=== PATIENT | male | born 1965 | race Caucasian/White ===

== ENCOUNTER 2023-04-09 16:22 | Inpatient (IN) | payer BC, MEDICAID ==
[~2023-04-09] VITALS: Ht 172.7 cm; Wt 81.8 kg
[2023-04-09 17:22] LABS: BASOPHILS # (AUTO) 0.1 X10'3 (0-0.2); BASOPHILS % (AUTO) 0.9 % (0-1); EOSINOPHILS # (AUTO) 0.3 X10'3 (0-0.9); HEMATOCRIT 40.1 % (42.0-52.0); HEMOGLOBIN 13.9 g/dl (14.0-17.9); LYMPHOCYTES # (AUTO) 2.8 X10'3 (1.1-4.8); LYMPHOCYTES % (AUTO) 41.2 % (21-51); MEAN CORPUSCULAR HEMOGLOBIN 31.9 PG (27.0-31.0); MEAN CORPUSCULAR HGB CONC 34.7 g/dL (33.0-36.5); MEAN PLATELET VOLUME 7.1 FL (7.4-10.4); MONOCYTES # (AUTO) 0.4 X10'3 (0-0.9); MONOCYTES % (AUTO) 5.9 % (2-12); NEUTROPHILS # (AUTO) 3.2 X10'3 (1.8-7.7); PLATELET COUNT 238 X10'3 (140-440); RED BLOOD COUNT 4.36 X10'6 (4.70-6.10); RED CELL DISTRIBUTION WIDTH 13.1 % (11.5-14.5); WHITE BLOOD COUNT 6.8 X10'3 (4.5-11.0)
[2023-04-09 17:28] LABS: ALANINE AMINOTRANSFERASE 27 U/L (12-78); ALBUMIN 3.7 G/DL (3.4-5.0); ALBUMIN/GLOBULIN RATIO 1.4 (1.1-1.5); ALKALINE PHOSPHATASE 98 IU/L (46-116); ANION GAP 6 (8-16); ASPARTATE AMINO TRANSFERASE 23 U/L (10-37); BILIRUBIN,TOTAL 0.1 MG/DL (0.1-1.0); BLOOD UREA NITROGEN 17 MG/DL (7-18); BUN/CREATININE RATIO 16.8 (10.0-20.0); CALCIUM 8.7 MG/DL (8.5-10.1); CHLORIDE 107 MMOL/L (99-107); CREATININE 1.01 MG/DL (0.60-1.10); GLUCOSE 178 MG/DL (70-104); POTASSIUM 3.7 MMOL/L (3.5-5.1); SODIUM 140 MMOL/L (135-145); TOTAL CARBON DIOXIDE 27.1 MMOL/L (24-32); TOTAL PROTEIN 6.4 G/DL (6.4-8.2); eGFR 76 ML/MIN
[2023-04-09] MEDS ORDERED: aspirin 325mg tablet PO ONE (17:40)
[2023-04-09] MEDS ORDERED: GABA-530 PO (18:36)
[2023-04-09] MEDS ORDERED: CELE-85 PO (18:38)
[2023-04-09] MEDS ORDERED: ESCI-8 PO (18:39)
[2023-04-09] MEDS ORDERED: BUSP10TA3 PO (18:40)
[2023-04-09] MEDS ORDERED: BUPR1FIL20 SL (18:40)
[2023-04-09] MEDS ORDERED: nicotine 21mg patch - 24 hr TD ONE (18:45)
[2023-04-09] MEDS ORDERED: thiamine 100mg tablet PO ONE (19:15)
[2023-04-09] MEDS ORDERED: magnesium hydroxide 30ml (MOM) UD suspension PO PRN (19:45)
[2023-04-09] MEDS ORDERED: potassium Cl 40MEQ/1/2NS 520ml 520 ML IV PRN (19:45)
[2023-04-09] MEDS ORDERED: magnesium Cl slow-release 64mg tablet PO PRN (19:45)
[2023-04-09] MEDS ORDERED: PERFLUTREN PROTEIN-A MICROSPHR (Optison) 0.22 MG/ML 3ML VIAL IV ONE (19:45)
[2023-04-09] MEDS ORDERED: magnesium 4gm in 100ml NS 100 ML IV PRN (19:45)
[2023-04-09] MEDS ORDERED: ondansetron/PF 4mg/2ml inj IV PRN (19:45)
[2023-04-09] MEDS ORDERED: potassium Cl 20 mEq SR tablet PO PRN ×2 (19:45)
[2023-04-09] MEDS ORDERED: magnesium 2GM in 50ml NS 50 ML IV PRN (19:45)
[2023-04-09] MEDS ORDERED: acetaminophen 325mg tablet PO PRN (19:45)
[2023-04-09] MEDS ORDERED: mag hydrox/Alum hydrox/simeth 30ml oral suspension PO PRN (19:45)
[2023-04-09] MEDS: K and/or MAG REPLACEMENT MC SCH (20:00)
[2023-04-09] MEDS: docusate sod 100mg capsule PO SCH (20:00)
[2023-04-09 20:06] LABS: CHOL/HDL RATIO 3.9 (0.00-4.99); CHOLESTEROL 160 MG/DL (0-200); HDL CHOLESTEROL 41 MG/DL (35-60); LDL CHOLESTEROL 77 MG/DL (50-100); TRIGLYCERIDES 290 MG/DL (20-135)
[2023-04-09 20:09] LABS: HEMOGLOBIN A1C 5.6 % (4.5-6.2)
--- NOTE | 2023-04-09 20:53 | NUR ---
PT ARRIVED TO ROOM 4022A. ABULATED TO BED FROM . ORIENTED TO THE ROOM. RECEIVED REPORT FROM AMERICA TERRY PRIOR TO PT'S ARRIVAL.
[2023-04-09] MEDS: gabapentin 100mg capsule PO SCH (21:03)
[2023-04-09] MEDS: heparin, porcine 5000 units/ml vial SQ SCH (21:04)
[2023-04-09 22:00] VITALS: BP 123/81
[2023-04-10] VITALS (7 sets, daily range): BP systolic 85–107; BP diastolic 39–83
[2023-04-10] MEDS: busPIRone 5mg tablet PO PRN ×2 (04:02→23:32)
--- NOTE | 2023-04-10 05:06 | NUR ---
pt has been having a 2 sec pauses. had about 10x since came up on this floor. dr. Sapp notified.
[2023-04-10 06:04] LABS: BASOPHILS # (AUTO) 0.1 X10'3 (0-0.2); BASOPHILS % (AUTO) 1.1 % (0-1); EOSINOPHILS # (AUTO) 0.2 X10'3 (0-0.9); EOSINOPHILS % (AUTO) 4.2 % (0-6); HEMATOCRIT 40.8 % (42.0-52.0); HEMOGLOBIN 13.8 g/dl (14.0-17.9); LYMPHOCYTES # (AUTO) 1.8 X10'3 (1.1-4.8); LYMPHOCYTES % (AUTO) 37.5 % (21-51); MEAN CORPUSCULAR HEMOGLOBIN 31.6 PG (27.0-31.0); MEAN CORPUSCULAR HGB CONC 33.8 g/dL (33.0-36.5); MEAN CORPUSCULAR VOLUME 93.4 FL (78-98); MEAN PLATELET VOLUME 7.7 FL (7.4-10.4); MONOCYTES # (AUTO) 0.4 X10'3 (0-0.9); MONOCYTES % (AUTO) 7.5 % (2-12); NEUTROPHILS # (AUTO) 2.3 X10'3 (1.8-7.7); NEUTROPHILS % (AUTO) 49.7 % (42-75); PLATELET COUNT 223 X10'3 (140-440); RED BLOOD COUNT 4.37 X10'6 (4.70-6.10); RED CELL DISTRIBUTION WIDTH 12.8 % (11.5-14.5); WHITE BLOOD COUNT 4.7 X10'3 (4.5-11.0)
[2023-04-10 06:20] LABS: ALANINE AMINOTRANSFERASE 24 U/L (12-78); ALBUMIN 3.4 G/DL (3.4-5.0); ALBUMIN/GLOBULIN RATIO 1.3 (1.1-1.5); ALKALINE PHOSPHATASE 87 IU/L (46-116); ANION GAP 4 (8-16); ASPARTATE AMINO TRANSFERASE 19 U/L (10-37); BILIRUBIN,TOTAL 0.4 MG/DL (0.1-1.0); BLOOD UREA NITROGEN 13 MG/DL (7-18); BUN/CREATININE RATIO 18.6 (10.0-20.0); CALCIUM 8.5 MG/DL (8.5-10.1); CHLORIDE 107 MMOL/L (99-107); GLUCOSE 92 MG/DL (70-104); MAGNESIUM 2.1 MG/DL (1.5-2.4); POTASSIUM 3.9 MMOL/L (3.5-5.1); SODIUM 142 MMOL/L (135-145); TOTAL CARBON DIOXIDE 30.7 MMOL/L (24-32); TOTAL PROTEIN 6.1 G/DL (6.4-8.2); eGFR > 90 ML/MIN
--- NOTE | 2023-04-10 06:23 | NUR ---
Problems reprioritized. Patient report given, questions answered & plan of care reviewed with AMERICA CANTU.
--- NOTE | 2023-04-10 07:01 | NUR ---
Patient in room ORTHO 4022. I have received report from CORKY CROSS and had the opportunity to ask questions and assume patient care.
[2023-04-10] MEDS: K and/or MAG REPLACEMENT MC SCH ×2 (08:00→20:00)
[2023-04-10] MEDS: docusate sod 100mg capsule PO SCH ×2 (08:00→20:07)
[2023-04-10] MEDS: ESCITALOPRAM OXALATE 5 MG TABLET PO SCH (08:26)
[2023-04-10] MEDS: buprenorphine/naloxone 8MG-2MG SUBlingual film SL SCH (08:26)
[2023-04-10] MEDS: gabapentin 100mg capsule PO SCH ×2 (08:26→20:06)
[2023-04-10] MEDS: heparin, porcine 5000 units/ml vial SQ SCH (08:27)
[2023-04-10] MEDS ORDERED: aspirin 81mg, enteric-coated 1 TAB TABLET.DR PO ONE (09:20)
[2023-04-10] MEDS ORDERED: pneumococcal 23-VAL P-sac vacc 25 mcg/0.5ml vial IMVAC ONE (10:00)
--- NOTE | 2023-04-10 10:55 | NUR ---
Visited patient with S.O. at bedside. Per S.O. pt symptoms started last , with slurring. 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 Currently pt exhibits some expressive aphasia and dysarthria. 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 Arm strength intact. No visual loss, coordination intact, sensation intact. Pt is a smoker, gave up drinking approx 1.5 years ago. Detailed discussion involving smoking cessation, dietary changes, and importance of taking medication as prescribed for secondary stroke prevention.
[2023-04-10] MEDS ORDERED: iohexol 350MG/ML 100ml bottle IV ONE (11:06)
--- NOTE | 2023-04-10 14:02 | NUR ---
PAGER ID: [phone] MESSAGE: [id number] mary [place], pt has had slow decrease in BPs, current is 85/39 and a manual 102/54. i let stroke nurse know, she stated to message you. Pt is SL. thanks
[2023-04-10] MEDS ORDERED: normal saline 1000ml 1,000 ML IV ONE (14:05)
[2023-04-10] MEDS: normal saline 1000ml 1,000 ML IV SCH ×2 (14:05→23:33)
[2023-04-10] MEDS ORDERED: clopidogrel 300mg tablet PO ONE (16:15)
--- NOTE | 2023-04-10 17:16 | NUR ---
Page Sent PAGER ID: [phone] MESSAGE: [id number] s horn, bp after bolus is 104/83 map of 90. josef
--- NOTE | 2023-04-10 18:21 | NUR ---
Problems reprioritized. Patient report given, questions answered & plan of care reviewed with cecilio park.
[2023-04-10] MEDS: atorvastatin 20mg tablet PO SCH (20:07)
--- NOTE | 2023-04-10 21:43 | NUR ---
tele notified of bradycardia hr of 30's. he had been having 2sec pauses 6x in last 3hrs. notified Dr Sapp. came up and saw pt. monitor for now. bp101/56 hr48 97%ra for now.
[2023-04-11 06:00] VITALS: BP 107/57
--- NOTE | 2023-04-11 06:14 | NUR ---
Problems reprioritized. Patient report given, questions answered & plan of care reviewed with xavier Chin.
--- NOTE | 2023-04-11 06:20 | NUR ---
RECEIVE REPORT FROM AMERICA FRIED
[2023-04-11 06:27] LABS: BASOPHILS # (AUTO) 0.1 X10'3 (0-0.2); BASOPHILS % (AUTO) 1.2 % (0-1); EOSINOPHILS # (AUTO) 0.2 X10'3 (0-0.9); EOSINOPHILS % (AUTO) 4.1 % (0-6); HEMATOCRIT 38.8 % (42.0-52.0); HEMOGLOBIN 12.9 g/dl (14.0-17.9); LYMPHOCYTES # (AUTO) 2.1 X10'3 (1.1-4.8); LYMPHOCYTES % (AUTO) 41.3 % (21-51); MEAN CORPUSCULAR HEMOGLOBIN 31.1 PG (27.0-31.0); MEAN CORPUSCULAR HGB CONC 33.4 g/dL (33.0-36.5); MEAN CORPUSCULAR VOLUME 93.1 FL (78-98); MEAN PLATELET VOLUME 7.3 FL (7.4-10.4); MONOCYTES # (AUTO) 0.4 X10'3 (0-0.9); MONOCYTES % (AUTO) 7.4 % (2-12); NEUTROPHILS # (AUTO) 2.3 X10'3 (1.8-7.7); PLATELET COUNT 219 X10'3 (140-440); RED BLOOD COUNT 4.16 X10'6 (4.70-6.10); WHITE BLOOD COUNT 5.1 X10'3 (4.5-11.0)
[2023-04-11 06:52] LABS: ALANINE AMINOTRANSFERASE 21 U/L (12-78); ALBUMIN 3.1 G/DL (3.4-5.0); ALBUMIN/GLOBULIN RATIO 1.2 (1.1-1.5); ALKALINE PHOSPHATASE 76 IU/L (46-116); ANION GAP 3 (8-16); ASPARTATE AMINO TRANSFERASE 14 U/L (10-37); BILIRUBIN,TOTAL 0.4 MG/DL (0.1-1.0); BLOOD UREA NITROGEN 13 MG/DL (7-18); BUN/CREATININE RATIO 16.5 (10.0-20.0); CALCIUM 8.5 MG/DL (8.5-10.1); CHLORIDE 109 MMOL/L (99-107); CREATININE 0.79 MG/DL (0.60-1.10); GLUCOSE 111 MG/DL (70-104); MAGNESIUM 2.2 MG/DL (1.5-2.4); POTASSIUM 4.1 MMOL/L (3.5-5.1); SODIUM 140 MMOL/L (135-145); TOTAL CARBON DIOXIDE 28.4 MMOL/L (24-32); TOTAL PROTEIN 5.6 G/DL (6.4-8.2); eGFR > 90 ML/MIN
[2023-04-11] MEDS: docusate sod 100mg capsule PO SCH ×2 (07:04→19:34)
[2023-04-11] MEDS: ESCITALOPRAM OXALATE 5 MG TABLET PO SCH (07:05)
[2023-04-11] MEDS: aspirin 81mg, enteric-coated 1 TAB TABLET.DR PO SCH (07:05)
[2023-04-11] MEDS: gabapentin 100mg capsule PO SCH ×2 (07:05→19:34)
[2023-04-11] MEDS: clopidogrel 75mg tablet PO SCH (07:06)
[2023-04-11] MEDS: buprenorphine/naloxone 8MG-2MG SUBlingual film SL SCH (07:06)
[2023-04-11] MEDS: nicotine 21mg patch - 24 hr TD SCH (07:07)
[2023-04-11] MEDS: K and/or MAG REPLACEMENT MC SCH ×2 (08:00→19:48)
[2023-04-11] MEDS: normal saline 1000ml 1,000 ML IV SCH ×3 (08:19→19:47)
[2023-04-11 10:00] VITALS: BP 108/67
[2023-04-11] MEDS ORDERED: pneumococcal 23-VAL P-sac vacc 25 mcg/0.5ml vial IMVAC ONE (10:00)
[2023-04-11 18:00] VITALS: BP 119/62
--- NOTE | 2023-04-11 18:21 | NUR ---
gave report to xavier hernandes
[2023-04-11] MEDS: atorvastatin 20mg tablet PO SCH (19:34)
[2023-04-11 22:00] VITALS: BP 97/61
[2023-04-12 02:09] VITALS: BP 101/60
[2023-04-12] MEDS: normal saline 1000ml 1,000 ML IV SCH (04:46)
[2023-04-12] MEDS: busPIRone 5mg tablet PO PRN (05:16)
[2023-04-12 06:09] VITALS: BP 108/73
[2023-04-12 06:09] LABS: BASOPHILS % (AUTO) 0.6 % (0-1); EOSINOPHILS # (AUTO) 0.2 X10'3 (0-0.9); EOSINOPHILS % (AUTO) 3.9 % (0-6); HEMATOCRIT 39.6 % (42.0-52.0); HEMOGLOBIN 13.4 g/dl (14.0-17.9); LYMPHOCYTES # (AUTO) 1.9 X10'3 (1.1-4.8); LYMPHOCYTES % (AUTO) 33.3 % (21-51); MEAN CORPUSCULAR HEMOGLOBIN 31.2 PG (27.0-31.0); MEAN CORPUSCULAR HGB CONC 33.7 g/dL (33.0-36.5); MEAN CORPUSCULAR VOLUME 92.4 FL (78-98); MEAN PLATELET VOLUME 7.5 FL (7.4-10.4); MONOCYTES # (AUTO) 0.4 X10'3 (0-0.9); NEUTROPHILS % (AUTO) 54.2 % (42-75); PLATELET COUNT 207 X10'3 (140-440); RED BLOOD COUNT 4.29 X10'6 (4.70-6.10); RED CELL DISTRIBUTION WIDTH 13.1 % (11.5-14.5); WHITE BLOOD COUNT 5.6 X10'3 (4.5-11.0)
[2023-04-12 06:16] LABS: ALANINE AMINOTRANSFERASE 17 U/L (12-78); ALBUMIN 3.1 G/DL (3.4-5.0); ALBUMIN/GLOBULIN RATIO 1.2 (1.1-1.5); ALKALINE PHOSPHATASE 77 IU/L (46-116); ANION GAP 1 (8-16); ASPARTATE AMINO TRANSFERASE 14 U/L (10-37); BILIRUBIN,TOTAL 0.3 MG/DL (0.1-1.0); BLOOD UREA NITROGEN 16 MG/DL (7-18); BUN/CREATININE RATIO 24.2 (10.0-20.0); CALCIUM 8.6 MG/DL (8.5-10.1); CHLORIDE 108 MMOL/L (99-107); CREATININE 0.66 MG/DL (0.60-1.10); GLUCOSE 93 MG/DL (70-104); MAGNESIUM 2.1 MG/DL (1.5-2.4); POTASSIUM 4.1 MMOL/L (3.5-5.1); SODIUM 141 MMOL/L (135-145); TOTAL PROTEIN 5.7 G/DL (6.4-8.2); eGFR > 90 ML/MIN
--- NOTE | 2023-04-12 06:28 | NUR ---
Patient in room ORTHO 4022. I have received report from Rupinder and had the opportunity to ask questions and assume patient care.
--- NOTE | 2023-04-12 06:28 | NUR ---
Problems reprioritized. Patient report given, questions answered & plan of care reviewed with xavier Sandoval.
[2023-04-12] MEDS: K and/or MAG REPLACEMENT MC SCH (07:29)
[2023-04-12] MEDS: aspirin 81mg, enteric-coated 1 TAB TABLET.DR PO SCH (07:37)
[2023-04-12] MEDS: clopidogrel 75mg tablet PO SCH (07:37)
[2023-04-12] MEDS: ESCITALOPRAM OXALATE 5 MG TABLET PO SCH (07:37)
[2023-04-12] MEDS: gabapentin 100mg capsule PO SCH (07:37)
[2023-04-12] MEDS: docusate sod 100mg capsule PO SCH (07:37)
[2023-04-12] MEDS: nicotine 21mg patch - 24 hr TD SCH (07:38)
[2023-04-12] MEDS: buprenorphine/naloxone 8MG-2MG SUBlingual film SL SCH (07:38)
[2023-04-12 10:00] VITALS: BP 123/66
[2023-04-12] MEDS ORDERED: ASPI-1071 PO (10:37)
[2023-04-12] MEDS ORDERED: ATOR20TA66 PO (10:37)
[2023-04-12] MEDS ORDERED: CLOP75TA34 PO (10:37)
--- NOTE | 2023-04-12 13:17 | NUR ---
Reviewed discharge instructions with patient, reviewed medications and confirmed pharmacy. Patient was already dressed in his own clothes. He gathered his belongings. Patient requested the discharge instructions be reviewed with his friend when she arrived to pick him up. Reviewed discharge with patient's friend. The friend will be driving patient to the pharmacy and home. Patient was wheeled downstairs by staff.
== END 2023-04-12 13:30 | disposition home or self-care (01) | DRG 66 ==
LOC: ER 16:23 → ED HOLD 19:47 → EDBEDREQ 20:39 → ORTHO 4S 21:19
PROVIDERS: ADMIT Internal Medicine; ATTEND Family Medicine
PROC: B3251ZZ Computerized Tomography (CT Scan) of Bilateral Common Carotid Arteries using Low Osmolar Contrast (ICD-10-PCS; principal; 2023-04-10)
PROC: B32G1ZZ Computerized Tomography (CT Scan) of Bilateral Vertebral Arteries using Low Osmolar Contrast (ICD-10-PCS; 2023-04-10)
PROC: B3281ZZ Computerized Tomography (CT Scan) of Bilateral Internal Carotid Arteries using Low Osmolar Contrast (ICD-10-PCS; 2023-04-10)
DX: I63.9 Cerebral infarction, unspecified (principal); I10 Essential (primary) hypertension; R47.01 Aphasia; I95.9 Hypotension, unspecified; G89.29 Other chronic pain; R29.701 NIHSS score 1; M19.90 Unspecified osteoarthritis, unspecified site; Z72.0 Tobacco use; Z71.6 Tobacco abuse counseling; Z87.11 Personal history of peptic ulcer disease
CPT/HCPCS: 36415; 70450; 70496; 70498; 70551; 71045; 72141; 80053; 80061; 82948; 83036; 83735; 84484; 85025; 87081; 90732; 92507; 92508; 92616; 93005; 93306; 93880; 97110; 97161; 97530; 99285; G0378; J1644; J3490; J7030; Q9967

== ENCOUNTER 2025-04-28 13:05 | Outpatient (CLI) | payer OTHER ==
[~2025-04-28 13:05] MED LIST: ASPI-1071 PO; ATOR20TA66 PO; BUPR1FIL20 SL; BUSP10TA3 PO; CLOP75TA34 PO; ESCI-8 PO; GABA-530 PO
--- NOTE | 2025-04-28 15:06 | RADIOLOGY REPORT ---
CLINICAL INDICATION: PAIN IN LEFT SHOULDER COMPARISON: None TECHNIQUE: Multiplanar, multisequence MRI of the left shoulder was performed without contrast. Contrast: None FINDINGS: Glenohumeral joint: There is no fracture or bone marrow edema. Alignment is maintained. Chondral t hinning in the superior aspect of the humeral head. Subchondral bone marrow edema in the posterior hu meral head. There is glenohumeral joint effusion. Acromioclavicular joint: The acromioclavicular joint is narrowed with capsular hypertrophy. There is a type 2 acromion. Rotator cuff and bursae: There is a full-thickness, full width tear of supraspinatus with retraction of the myotendinous junction. Infraspinatus tendinosis and partial-thickness tear. There is severe s ubscapularis tendinosis. Teres minor tendon is intact. There is no regional muscle atrophy. Flui d decompresses freely into the subacromial subdeltoid bursa from the glenohumeral joint through the t orn supraspinatus tendon. Biceps tendon and glenoid labrum: The long head biceps tendon is located within the bicipital groove and intact. There is a tear of the anterior superior labrum. IMPRESSION: 1. Full-thickness, full width retracted tear of supraspinatus. Infraspinatus tendinosis and partial- thickness articular surface tear. Severe subscapularis tendinosis without tear. 2. AC joint arthrosis. 3. Tear of the anterior superior labrum.
== END 2025-04-28 23:59 | disposition home or self-care (01) ==
LOC: MRI02 13:05
PROVIDERS: ATTEND Orthopaedic Surgery
DX: S46.012A Strain of muscle(s) and tendon(s) of the rotator cuff of left shoulder, initial encounter (principal); M19.012 Primary osteoarthritis, left shoulder; M25.512 Pain in left shoulder; Y99.8 Other external cause status; X58.XXXA Exposure to other specified factors, initial encounter; Y93.89 Activity, other specified; Y92.89 Other specified places as the place of occurrence of the external cause
CPT/HCPCS: 73221